=== PATIENT | male | born 1955 | race Caucasian/White ===

== ENCOUNTER 2019-01-19 18:55 | Emergency (ER) | payer BC ==
[~2019-01-19] VITALS: Ht 180.3 cm; Wt 93.0 kg
--- NOTE | 2019-01-19 19:19 | NUR ---
Patient AAox4. Speaking in complete sentences. Speech clear. no neuro deficits noted. Patient comes in with c/o R hand injury s/p sustaining a puncture wound to 2nd digit. Patient states he sustained a scab which he removed this morning @ 1100. Patient states he now has 7/10 pain with limited ROM to the affected area. No bleeding/drainage is noted. No open wound is noted. Patient is concerned he may have retained foreign material to the area. Last Tdap UNK. No cardiovascular distress noted. Respirtations even and unlabored. No SOB/congestion noted. No c/o GI/ distress noted. patient ambulated to room with stable gait. Visitor at bedside. Patient in bed, siderails up. Bed in lowest position. Fall precautions in place per protocol.
[2019-01-19] MEDS ORDERED: TDAP DIPH,PERTUSS,TET VAC/PF 0.5 ML DISP.SYRIN IM ONE ×2 (19:30→19:46)
[2019-01-19] MEDS ORDERED: CEphaleXIN 500 MG CAPSULE ONE (19:50)
[2019-01-19] MEDS ORDERED: SULFAMETH/TRIMETH 800/160 MG TABLET ONE (19:50)
--- NOTE | 2019-01-19 19:58 | NUR ---
Patient discharged to home in stable conditon. Written and verbal after care instructions given. Patient verbalizes understanding of instructions. Ambulated from ER with stable gait. All belongings with patient.
[2019-01-19 19:59] VITALS: BP 131/78
[2019-01-19] MEDS ORDERED: CEphaleXIN 500 MG CAPSULE PO ONE (20:00)
[2019-01-19] MEDS ORDERED: SULFAMETH/TRIMETH 800/160 MG TABLET PO ONE (20:00)
== END 2019-01-19 19:59 | disposition home or self-care (01) ==
LOC: ER 18:55
DX: L03.011 Cellulitis of right finger (principal); K21.9 Gastro-esophageal reflux disease without esophagitis; E11.9 Type 2 diabetes mellitus without complications; Z88.0 Allergy status to penicillin; Z88.8 Allergy status to other drugs, medicaments and biological substances
CPT/HCPCS: 76881; 90715; A4663

== ENCOUNTER 2021-07-29 18:04 | Emergency (ER) | payer MEDICARE, BC ==
[~2021-07-29] VITALS: Ht 180.3 cm; Wt 97.5 kg
[2021-07-29 19:30] LABS: HEMATOCRIT 42.6 % (36.7-47.1); MEAN CORPUSCULAR HEMOGLOBIN 28.3 uug (23.8-33.4); MEAN CORPUSCULAR VOLUME 87.6 fL (73.0-96.2); PLATELET COUNT (AUTO) 237 K/uL (152-348)
[2021-07-29 19:35] LABS: CREATININE 1.4 mg/dL (0.6-1.3); POTASSIUM 3.8 mmol/L (3.5-5.1)
--- NOTE | 2021-07-29 19:38 | NUR ---
PT IS IN ROOM #2B. DR VALDEZ EVALUATED THE PT.
[2021-07-29 19:41] LABS: BILIRUBIN,DIRECT 0.1 mg/dL (0.0-0.2); BILIRUBIN,TOTAL 0.2 mg/dL (0.2-1.0); TOTAL PROTEIN, SERUM 6.7 g/dL (6.4-8.2)
[2021-07-29] MEDS ORDERED: METF-440 PO (19:57)
[2021-07-29] MEDS ORDERED: AMIT10TA6 PO (19:57)
[2021-07-29] MEDS ORDERED: CLOM50TA18 PO (19:57)
[2021-07-29] MEDS ORDERED: ICOS1CAP PO (19:57)
[2021-07-29] MEDS ORDERED: UBID50TA3 PO (19:57)
[2021-07-29] MEDS ORDERED: EMPA25TA PO (19:57)
[2021-07-29] MEDS ORDERED: AMLO10TA59 PO (19:57)
[2021-07-29] MEDS ORDERED: FINA5TAB11 PO (19:57)
[2021-07-29] MEDS ORDERED: ARGI500T PO (19:57)
[2021-07-29] MEDS ORDERED: CIPR500T5 PO (19:57)
[2021-07-29] MEDS ORDERED: [UNRECOGNIZED DRUG - OTHER] (19:57)
[2021-07-29] MEDS ORDERED: EVOL140P3 SQ (20:06)
[2021-07-29] MEDS ORDERED: INSU300I SQ (20:06)
[2021-07-29] MEDS ORDERED: TAMS-3 PO (20:06)
[2021-07-29] MEDS ORDERED: [UNRECOGNIZED DRUG - OTHER] PO (20:06)
[2021-07-29] MEDS ORDERED: NATE60TA4 PO (20:06)
[2021-07-29] MEDS ORDERED: MULT-594 PO (20:06)
[2021-07-29] MEDS ORDERED: PANT40TA49 PO (20:06)
[2021-07-29] MEDS ORDERED: OLME20TA13 PO (20:06)
[2021-07-29] MEDS ORDERED: OXYC-128 PO (20:21)
[2021-07-29 20:29] VITALS: BP 141/79
== END 2021-07-29 20:39 | disposition home or self-care (01) ==
LOC: ER 18:04
DX: M79.605 Pain in left leg (principal); S89.92XS Unspecified injury of left lower leg, sequela; X58.XXXS Exposure to other specified factors, sequela; E11.9 Type 2 diabetes mellitus without complications; Q79.60 Ehlers-Danlos syndrome, unspecified; E21.3 Hyperparathyroidism, unspecified; Z98.1 Arthrodesis status; Z88.8 Allergy status to other drugs, medicaments and biological substances; Z79.4 Long term (current) use of insulin; Z79.899 Other long term (current) drug therapy
CPT/HCPCS: 36415; 73590; 85025; 85651; 86140; A4663